=== PATIENT | male | born 1935 | race Caucasian/White ===

== ENCOUNTER 2018-04-18 22:01 | Inpatient (IN) | payer MEDICARE, BC ==
--- NOTE | 2018-04-18 23:17 | EDM.PDOC ---
ED HPI GENERAL MEDICAL PROBLEM - General Chief Complaint: Abdominal Pain Stated Complaint: "Having bloody stools" Time Seen by Provider: 04/18/18 22:15 Source of Information: Reports: Patient History Limitations: Reports: No Limitations, Other (hearing loss) - History of Present Illness INITIAL COMMENTS - FREE TEXT/NARRATIVE: Adiel is an 83 yo male who presents to the ED via private vehicle with complaints of abdominal pain, diarrhea and small amount of blood in his stools. He states he was feeling well this morning and had a late breakfast. He didn't have any symptoms until around 1:00pm this afternoon. He admits he started to get some cramps and had an episode of diarrhea. Denies any blood in his stool at this time. States he didn't feel to well later in the afternoon and had an episode of watery diarrhea with a small amount of blood in it. He has had one more episode (total of 3) this evening with a small amount of blood again. Continues to have abdominal cramps that come and go. He states he has no known history of diverticulitis. No prior abdominal surgeries. Onset: Today, Gradual Onset Date: 04/18/18 Onset Time: 13:00 Duration: Waxing/Waning Location: Reports: Abdomen Bilateral Lower Abdominal Pain Score (Numeric/FACES): 1 - Related Data Allergies Allergy/AdvReac Type Severity Reaction Status Date / Time No Known Allergies Allergy Verified 04/18/18 22:35 Home Meds: Home Meds Aspirin [Ecotrin] 81 mg PO DAILY 03/14/15 [History] Finasteride 5 mg PO DAILY 03/14/15 [History] Lisinopril/Hydrochlorothiazide [Lisinopril-Hctz 20-12.5 mg Tab] 0.5 tab PO DAILY 03/14/15 [History] Minocycline HCl 100 mg PO MOWEFR 03/14/15 [History] Terazosin HCl [Terazosin] 2 mg PO DAILY 03/14/15 [History] amLODIPine Besylate [Norvasc] 5 mg PO DAILY 03/14/15 [History] Past Medical History Cardiovascular History: Reports: Hypertension Genitourinary History: Reports: BPH Social & Family History - Tobacco Use Smoking Status *Q: Never Smoker Second Hand Smoke Exposure: No ED ROS GENERAL - Review of Systems Review Of Systems: See Below Constitutional: Denies: Fever, Chills, Decreased Appetite HEENT: Reports: No Symptoms Respiratory: Denies: Shortness of Breath, Wheezing, Cough Cardiovascular: Reports: Blood Pressure Problem. Denies: Chest Pain, Lightheadedness, Palpitations, Syncope GI/Abdominal: Reports: Abdominal Pain, Diarrhea, Hematochezia. Denies: Black Stool, Decreased Appetite, Flatus, Hematemesis, Nausea, Vomiting : Reports: No Symptoms Skin: Reports: No Symptoms Neurological: Reports: No Symptoms ED EXAM, GI/ABD - Physical Exam Exam: See Below Exam Limited By: No Limitations General Appearance: Alert, No Apparent Distress Ears: Normal External Exam, Hearing Loss Nose: Normal Inspection, Normal Mucosa, No Blood Throat/Mouth: Normal Inspection, Normal Lips, Normal Oropharynx, Normal Voice, No Airway Compromise Head: Atraumatic, Normocephalic Neck: Normal Inspection, Supple Respiratory/Chest: No Respiratory Distress, Lungs Clear, Normal Breath Sounds, No Accessory Muscle Use Cardiovascular: Normal Peripheral Pulses, Regular Rate, Rhythm, No Edema, No Murmur GI/Abdominal Exam: Soft, Tender (mild tenderness in bilateral lower quadrants). No: Guarding, Rigid, Abnormal Bowel Sounds, Mass, Hepatomegaly, Splenomegaly Rectal (Males) Exam: BPH, Heme + Stool. No: Black Stool, Fecal Impaction, Hemorrhoids, Mass, Prostate Nodule, Tenderness Extremities: Normal Inspection, No Pedal Edema Neurological: Alert, Oriented, Normal Cognition, No Motor/Sensory Deficits Psychiatric: Normal Affect, Normal Mood Skin Exam: Warm, Dry, Intact, Normal Color, No Rash Course - Vital Signs Last Recorded V/S: Last Vital Signs Temp 98.2 F 04/19/18 01:42 Pulse 89 04/19/18 01:42 Resp 20 04/19/18 01:42 BP 137/74 04/19/18 01:42 Pulse Ox 97 04/19/18 01:42 - Orders/Labs/Meds Orders: Active Orders 24 hr Category Date Time Status Abdomen Pelvis w Cont [CT] Stat Exams 04/18/18 23:10 Taken Labs: Laboratory Tests 04/18/18 04/18/18 04/18/18 Range/Units 22:47 22:47 23:10 WBC 10.3 H (5.0-10.0) 10^3/uL RBC 4.31 L (4.50-6.00) 10^6/uL Hgb 13.2 L (14.0-18.0) g/dL Hct 39.4 L (40.0-54.0) % MCV 91.4 (82.0-94.0) fL MCH 30.6 (27.0-32.0) pg MCHC 33.5 (33.0-38.0) g/dL RDW Coeff of Cezar 12.7 (11.0-15.0) % Plt Count 196 (150-400) 10^3/uL Neut % (Auto) 77.5 (35-85) % Lymph % (Auto) 14.5 (10-55) % [place] % (Auto) 5.7 (0-16) % Eos % (Auto) 2.0 (0-5) % Baso % (Auto) 0.3 (0-3) % Neut # (Auto) 7.98 H (1.80-7.00) 10^3/uL Lymph # (Auto) 1.49 (1.00-4.80) 10^3/uL [place] # (Auto) 0.59 (0.00-0.80) 10^3/uL Eos # (Auto) 0.21 (0.00-0.45) 10^3/uL Baso # (Auto) 0.03 10^3/uL Sodium 144 (136-145) mEq/L Potassium 4.0 (3.5-5.0) mEq/L Chloride 106 (98-106) mEq/L Carbon Dioxide 28 (21-32) mmol/L BUN 20 H (7-18) mg/dL Creatinine 1.1 (0.7-1.3) mg/dL Est Cr Clr Drug Dosing 51.78 mL/min Estimated GFR (MDRD) > 60 (>=60) mL/min Glucose 110 H (75-99) mg/dL Lactic Acid (0.4-2.0) mmol/L Calcium 8.5 (8.4-10.1) mg/dL Total Bilirubin 0.6 (0.0-1.0) mg/dL AST 19 (15-37) U/L ALT 26 (12-78) U/L Alkaline Phosphatase 61 (46-116) U/L C-Reactive Protein 0.6 (0.2-0.8) mg/dL Total Protein 6.7 (6.4-8.2) g/dL Albumin 3.7 (3.4-5.0) g/dL Amylase 72 (25-115) U/L Prostate Specific Ag 3.03 (0.13-4.0) ng/mL Urine Color Yellow (YELLOW) Urine Appearance Clear (CLEAR) Urine pH 5.5 (4.5-8.0) Ur Specific [place] 1.025 H (1.003-1.020) Urine Protein 30 H (NEGATIVE) mg/dL Urine Glucose (UA) Negative (NEGATIVE) mg/dL Urine Ketones Trace H (NEGATIVE) mg/dL Urine Occult Blood Negative (NEGATIVE) Urine Nitrite Negative (NEGATIVE) Urine Bilirubin Negative (NEGATIVE) Urine Urobilinogen 0.2 (0.2-1.0) EU/dL Ur Leukocyte Esterase Negative (NEGATIVE) Urine RBC Not seen (0-5) /HPF Urine WBC Not seen (0-5) /HPF Ur Squamous Epith Cells Occasional H (NOT SEEN) /HPF Urine Mucus Moderate H (NOT SEEN) /HPF 04/19/18 Range/Units 00:34 WBC (5.0-10.0) 10^3/uL RBC (4.50-6.00) 10^6/uL Hgb (14.0-18.0) g/dL Hct (40.0-54.0) % MCV (82.0-94.0) fL MCH (27.0-32.0) pg MCHC (33.0-38.0) g/dL RDW Coeff of Cezar (11.0-15.0) % Plt Count (150-400) 10^3/uL Neut % (Auto) (35-85) % Lymph % (Auto) (10-55) % [place] % (Auto) (0-16) % Eos % (Auto) (0-5) % Baso % (Auto) (0-3) % Neut # (Auto) (1.80-7.00) 10^3/uL Lymph # (Auto) (1.00-4.80) 10^3/uL [place] # (Auto) (0.00-0.80) 10^3/uL Eos # (Auto) (0.00-0.45) 10^3/uL Baso # (Auto) 10^3/uL Sodium (136-145) mEq/L Potassium (3.5-5.0) mEq/L Chloride (98-106) mEq/L Carbon Dioxide (21-32) mmol/L BUN (7-18) mg/dL Creatinine (0.7-1.3) mg/dL Est Cr Clr Drug Dosing mL/min Estimated GFR (MDRD) (>=60) mL/min Glucose (75-99) mg/dL Lactic Acid 0.9 (0.4-2.0) mmol/L Calcium (8.4-10.1) mg/dL Total Bilirubin (0.0-1.0) mg/dL AST (15-37) U/L ALT (12-78) U/L Alkaline Phosphatase (46-116) U/L C-Reactive Protein (0.2-0.8) mg/dL Total Protein (6.4-8.2) g/dL Albumin (3.4-5.0) g/dL Amylase (25-115) U/L Prostate Specific Ag (0.13-4.0) ng/mL Urine Color (YELLOW) Urine Appearance (CLEAR) Urine pH (4.5-8.0) Ur Specific [place] (1.003-1.020) Urine Protein (NEGATIVE) mg/dL Urine Glucose (UA) (NEGATIVE) mg/dL Urine Ketones (NEGATIVE) mg/dL Urine Occult Blood (NEGATIVE) Urine Nitrite (NEGATIVE) Urine Bilirubin (NEGATIVE) Urine Urobilinogen (0.2-1.0) EU/dL Ur Leukocyte Esterase (NEGATIVE) Urine RBC (0-5) /HPF Urine WBC (0-5) /HPF Ur Squamous Epith Cells (NOT SEEN) /HPF Urine Mucus (NOT SEEN) /HPF Meds: Medications Discontinued Medications Generic Name Dose Route Start Last Admin Trade Name Freq PRN Reason Stop Dose Admin Iopamidol 100 ml 04/18/18 23:54 04/18/18 23:55 Isovue-300 (61%) IVPUSH 04/18/18 23:55 130 ml ONETIME ONE Administration Departure - Departure Time of Disposition: 01:11 Disposition: Admitted As Inpatient 67 Clinical Impression: Colitis - Discharge Information - Problem List & Annotations (1) Colitis SNOMED Code(s): 72257025 Code(s): K52.9 - NONINFECTIVE GASTROENTERITIS AND COLITIS, UNSPECIFIED Status: Acute Current Visit: Yes - My Orders Last 24 Hours: My Active Orders 04/18/18 23:10 Abdomen Pelvis w Cont [CT] Stat - Assessment/Plan Admission H&P: Please use this note as an admission H&P Last 24 Hours: My Active Orders 04/18/18 23:10 Abdomen Pelvis w Cont [CT] Stat Plan: Laboratory work showed a mildly elevated WBC, otherwise unremarkable. Lactic Acid was normal. CMP unremarkable. CT of the abdomen/pelvis did show colitis extending from splenic flexure to the sigmoid region. Radiologist stated differential could be ischemic vs infectious vs inflammatory bowel. I consulted with Dr. Goodman at [facility] in regards to Adiel's condition. Adiel's vital signs have been stable, afebrile. Will admit to acute care and initiate IV fluids and antibiotics. Stool cultures ordered. Will repeat labs with lactic acid in am. I will consult with Dr. Thrasher in the morning. Dr. Goodman felt treatment plan was appropriate. Adiel was transferred to floor in satisfactory condition.
[2018-04-18 23:34] LABS: CHLORIDE,CL 106 mEq/L (98-106); SODIUM,NA 144 mEq/L (136-145)
[2018-04-18] MEDS ORDERED: Iopamidol 612 MG/ML 100 ML Bottle IVPUSH ONE (23:54)
[2018-04-19] MEDS ORDERED: Ondansetron 4 MG/2 ML SDV IV PRN (01:50)
[2018-04-19] MEDS ORDERED: fentaNYL 100 MCG/2 ML SDV IVPUSH PRN (01:50)
[2018-04-19] MEDS ORDERED: Acetaminophen 325 MG Tab PO PRN (01:50)
[2018-04-19] MEDS: Sodium Chloride 0.9% 1,000 ML IV SCH ×2 (02:41→17:33)
[2018-04-19] MEDS ORDERED: metroNIDAZOLE/Normal Saline 500 MG in Premix Bag 1 BAG IV ONE (02:45)
[2018-04-19] MEDS: Levofloxacin/Dextrose 5%-Water 500 MG in Premix Bag 1 BAG IV SCH (03:42)
[2018-04-19 07:31] LABS: CHLORIDE,CL 106 mEq/L (98-106); SODIUM,NA 144 mEq/L (136-145)
[2018-04-19] MEDS: Terazosin 1 MG Cap PO SCH (08:49)
[2018-04-19] MEDS: Finasteride 5 MG Tab PO SCH (08:50)
[2018-04-19] MEDS: Lisinopril 10 MG Tab PO SCH (08:50)
[2018-04-19] MEDS: amLODIPine 2.5 MG Tab PO SCH (08:50)
[2018-04-19] MEDS: Hydrochlorothiazide 25 MG Tab PO SCH (08:51)
--- NOTE | 2018-04-19 09:03 | PN ---
DATE: 04/19/2018 S: Adiel is an 83-year-old gentleman who presented to the emergency room yesterday with concerns of diarrhea that had started yesterday afternoon. Complete workup was done in the emergency room. A CT scan of the abdomen and pelvis did show extensive colitis just distal to the splenic flexure extending down to the sigmoid colon. LABORATORY WORK: On admission did show a hemoglobin of 13.2 which is stable for him. Lactic acid was within normal limits. CRP was 0.6. We elected to admit him to the hospital for IV antibiotics and fluids. This morning, he states that he does feel a little bit better. He really has not had any diarrhea throughout the night. He does state that he has been able to void without any complications. He has been starting to pass some flatus. He is requesting to eat some food this morning. He remained afebrile throughout the night. Vital signs were stable. O: VITAL SIGNS: Blood pressure is 114/50, current pulse is 74, O2 is 99%, respiratory rate of 19, and temp is afebrile at 97.8. GENERAL: Pleasant cooperative male. He does not appear to be in any distress, whatsoever. He appears to be lying comfortably on the hospital bed. LUNGS: Clear to auscultation. CARDIAC: Regular. ABDOMEN: Soft. No diffuse tenderness throughout the entire abdomen. Bowel sounds are present. Normoactive. EXTREMITIES: No pedal edema is noted. ASSESSMENT: COLITIS, UNKNOWN ETIOLOGY. P: We will continue with IV fluids and IV antibiotics. I discussed with Adiel. We will repeat laboratory work again in the morning. The labs completed today did show lactic acid to remain within normal limits. CRP did elevate up to 1.2, was 0.6 yesterday. White blood count is currently 7700. Hemoglobin has been stable as well, at 12.5. Again, he is getting IV fluids. MADHAV/RAJ /[id number]
[2018-04-19] MEDS: metroNIDAZOLE/Normal Saline 500 MG in Premix Bag 1 BAG IV SCH ×2 (09:57→19:26)
[2018-04-19] MEDS ORDERED: Pantoprazole 40 MG Tab.CR PO SCH (18:45)
[2018-04-20] MEDS: metroNIDAZOLE/Normal Saline 500 MG in Premix Bag 1 BAG IV SCH ×3 (02:09→17:30)
[2018-04-20] MEDS: Levofloxacin/Dextrose 5%-Water 500 MG in Premix Bag 1 BAG IV SCH (03:10)
[2018-04-20] MEDS: Terazosin 1 MG Cap PO SCH (07:38)
[2018-04-20] MEDS: Lisinopril 10 MG Tab PO SCH (07:38)
[2018-04-20] MEDS: Hydrochlorothiazide 25 MG Tab PO SCH (07:39)
[2018-04-20] MEDS: amLODIPine 2.5 MG Tab PO SCH (07:40)
[2018-04-20] MEDS: Finasteride 5 MG Tab PO SCH (07:42)
[2018-04-20 07:43] LABS: CHLORIDE,CL 109 mEq/L (98-106); SODIUM,NA 143 mEq/L (136-145)
[2018-04-20] MEDS: Sodium Chloride 0.9% 1,000 ML IV SCH ×2 (09:30→23:58)
--- NOTE | 2018-04-20 12:22 | PCM.PN ---
- General Info Date of Service: 04/20/18 Admission Dx/Problem (Free Text): Colitis Subjective Update: Adiel is an 83 year old male who was admitted to the hospital 04/18/2018 for colitis. This morning he is resting comfortably in his chair at the time of rounds. He reports he is feeling better this morning. Does report his diarrhea has decreased and his abdominal pain has much improved. He has not had any nausea or vomiting. Functional Status: Reports: Pain Controlled, Tolerating Diet, Ambulating, Urinating. Denies: New Symptoms - Review of Systems General: Denies: Fever, Weakness, Fatigue, Chills Pulmonary: Reports: No Symptoms Cardiovascular: Reports: No Symptoms Gastrointestinal: Reports: Abdominal Pain (LLQ, improving), Diarrhea, Hematochezia. Denies: Decreased Appetite, Nausea, Vomiting Genitourinary: Denies: Dysuria, Frequency, Urgency Musculoskeletal: Reports: No Symptoms Skin: Reports: No Symptoms Neurological: Reports: No Symptoms Psychiatric: Reports: No Symptoms - Patient Data Vitals - Most Recent: Last Vital Signs Temp 97.3 F 04/20/18 11:49 Pulse 51 L 04/20/18 11:49 Resp 16 04/20/18 11:49 BP 115/51 L 04/20/18 11:49 Pulse Ox 98 04/20/18 11:49 Weight - Most Recent: 160 lb 3.2 oz I&O - Last 24 Hours: Intake & Output 04/19/18 04/20/18 04/20/18 22:59 06:59 14:59 Intake Total 1100 1100 Balance 1100 1100 Lab Results Last 24 Hours: Laboratory Results - last 24 hr 04/20/18 04/20/18 04/20/18 Range/Units 06:45 06:45 06:45 WBC 7.2 (5.0-10.0) 10^3/uL RBC 3.87 L (4.50-6.00) 10^6/uL Hgb 11.9 L (14.0-18.0) g/dL Hct 36.2 L (40.0-54.0) % MCV 93.5 (82.0-94.0) fL MCH 30.7 (27.0-32.0) pg MCHC 32.9 L (33.0-38.0) g/dL RDW Coeff of Cezar 12.8 (11.0-15.0) % Plt Count 176 (150-400) 10^3/uL Neut % (Auto) 70.3 (35-85) % Lymph % (Auto) 18.1 (10-55) % [place] % (Auto) 6.9 (0-16) % Eos % (Auto) 4.3 (0-5) % Baso % (Auto) 0.4 (0-3) % Neut # (Auto) 5.07 (1.80-7.00) 10^3/uL Lymph # (Auto) 1.31 (1.00-4.80) 10^3/uL [place] # (Auto) 0.50 (0.00-0.80) 10^3/uL Eos # (Auto) 0.31 (0.00-0.45) 10^3/uL Baso # (Auto) 0.03 10^3/uL Sodium 143 (136-145) mEq/L Potassium 4.2 (3.5-5.0) mEq/L Chloride 109 H (98-106) mEq/L Carbon Dioxide 28 (21-32) mmol/L BUN 11 (7-18) mg/dL Creatinine 0.9 (0.7-1.3) mg/dL Est Cr Clr Drug Dosing 65.04 mL/min Estimated GFR (MDRD) > 60 (>=60) mL/min Glucose 90 (75-99) mg/dL Lactic Acid 0.6 (0.4-2.0) mmol/L Calcium 8.1 L (8.4-10.1) mg/dL C-Reactive Protein 2.6 H (0.2-0.8) mg/dL Sid Results Last 24 Hours: Microbiology 04/19/18 01:50 Shiga Toxin I & II - Final Stool / Feces 04/19/18 01:50 C. difficile DNA Amplification - Final Stool / Feces NEGATIVE CDIFF BY DNA 04/19/18 01:50 Stool for WBCs - Final Stool / Feces Med Orders - Current: Current Medications Acetaminophen (Tylenol) 650 mg PO Q4H PRN PRN Reason: Pain (Mild 1-3)/fever Amlodipine Besylate (Norvasc) 5 mg PO DAILY [facility] Last Admin: 04/20/18 07:40 Dose: 5 mg Fentanyl (Sublimaze) 25 mcg IVPUSH Q6H PRN PRN Reason: Pain Finasteride (Proscar) 5 mg PO DAILY [facility] [place] Last Admin: 04/20/18 07:42 Dose: 5 mg Hydrochlorothiazide (Hydrochlorothiazide) 6.25 mg PO DAILY [facility] [place] Last Admin: 04/20/18 07:39 Dose: 6.25 mg Levofloxacin/Dextrose 500 mg/ (Premix) 100 mls @ 100 mls/hr IV Q24H [facility] [place] Last Admin: 04/20/18 03:10 Dose: 100 mls/hr Metronidazole 500 mg/ Premix 100 mls @ 100 mls/hr IV Q8H [facility] [place] Last Admin: 04/20/18 09:34 Dose: 100 mls/hr Sodium Chloride (Normal Saline) 1,000 mls @ 75 mls/hr IV ASDIRECTED [facility] [place] Last Admin: 04/20/18 09:30 Dose: 75 mls/hr Lisinopril (Prinivil) 10 mg PO DAILY [facility] [place] Last Admin: 04/20/18 07:38 Dose: 10 mg Ondansetron HCl (Zofran) 4 mg IV Q4H PRN PRN Reason: Nausea/Vomiting Terazosin HCl (Hytrin) 2 mg PO DAILY [facility] Last Admin: 04/20/18 07:38 Dose: 2 mg Discontinued Medications Metronidazole 500 mg/ Premix 100 mls @ 100 mls/hr IV ONETIME ONE Stop: 04/19/18 03:44 Last Admin: 04/19/18 02:42 Dose: 100 mls/hr Iopamidol (Isovue-300 (61%)) 100 ml IVPUSH ONETIME ONE Stop: 04/18/18 23:55 Last Admin: 04/18/18 23:55 Dose: 130 ml - Exam General: Alert, Oriented, No Acute Distress Neck: Supple Lungs: Clear to Auscultation, Normal Respiratory Effort Cardiovascular: Regular Rate, Regular Rhythm GI/Abdominal Exam: Normal Bowel Sounds, Soft, No Organomegaly, No Distention, No Abnormal Bruit, No Mass, Pelvis Stable, Tender (LLQ) Neurological: No New Focal Deficit Psy/Mental Status: Alert, Normal Affect, Normal Mood - Problem List & Annotations (1) Colitis SNOMED Code(s): 00729063 Code(s): K52.9 - NONINFECTIVE GASTROENTERITIS AND COLITIS, UNSPECIFIED Status: Acute Current Visit: Yes - Problem List Review Problem List Initiated/Reviewed/Updated: Yes - My Orders Last 24 Hours: My Active Orders 04/20/18 Lunch Regular Diet [DIET] - Plan Plan:: Patient's symptoms improving. Labs all stable. Would like to keep patient an additional day for IV antibiotics. Patient will need to be scheduled for colonoscopy next Thursday per Dr. Thrasher. Will advance diet today and see how patient tolerates. If patient able to tolerate diet with no worsening of symptoms, anticipate discharge home tomorrow. Dr. Thrasher present on rounds and agrees with plan.
[2018-04-21] MEDS: metroNIDAZOLE/Normal Saline 500 MG in Premix Bag 1 BAG IV SCH ×2 (01:34→09:16)
[2018-04-21] MEDS: Levofloxacin/Dextrose 5%-Water 500 MG in Premix Bag 1 BAG IV SCH (02:34)
[2018-04-21] MEDS: Terazosin 1 MG Cap PO SCH (09:10)
[2018-04-21] MEDS: Lisinopril 10 MG Tab PO SCH (09:10)
[2018-04-21] MEDS: Finasteride 5 MG Tab PO SCH (09:11)
[2018-04-21] MEDS: Hydrochlorothiazide 25 MG Tab PO SCH (09:11)
[2018-04-21] MEDS: amLODIPine 2.5 MG Tab PO SCH (09:12)
[2018-04-21 09:14] VITALS: BP 147/72
--- NOTE | 2018-04-22 09:34 | DISCH ---
HISTORY: Adiel is an 83-year-old gentleman who presented to the ER on 04/18/2018 with complaints of abdominal pain, diarrhea, and small amount of blood in his stools. His symptoms initially have started earlier in that afternoon. Throughout the day, his symptoms gradually worsened, started having more episodes of diarrhea and did notice some bloody stools towards the end. CT scan of the abdomen and pelvis prior to the admission did show diffuse colitis extending from just distal to the splenic flexure down to the sigmoid colon. HOSPITAL COURSE: Adiel has been progressing fairly well with no further bloody stools since admission. He was put on Levaquin and Flagyl intravenously. [place] [address] now down to 7200 today. CRP is 2.6. Otherwise, his laboratory work has been fairly unremarkable. Adiel is feeling a lot better. He states he did have a bowel movement this morning with no further blood again. He is asking whether he can go home today. PHYSICAL EXAMINATION: VITAL SIGNS: Have been stable. Blood pressure is 140/64, oxygen saturations 97% on room air with respiratory rate of 16, he has been afebrile, and temperature is 98.3. No fevers have been noted since admission. Stool cultures did show negative Clostridium difficile. Shiga toxin was negative. DISCHARGE MEDICATIONS: The patient will be discharged home on: 1. Ciprofloxacin 500 mg twice a day for 10 days. 2. Flagyl 500 mg three times a day for 10 days. DISCHARGE INSTRUCTIONS: The patient is to go home and rest. He is to closely monitor his stools. If he has any further bloody stools, he is to return for reevaluation. We will look and get him setup with Leslie Smith, his primary provider next week for preop examination in regard to have him colonoscopy by Dr. Prakash Thrasher next week Thursday. MADHAV/RAJ /[id number]
== END 2018-04-21 10:45 | disposition home or self-care (01) | DRG 392 ==
LOC: CC.ED 22:01 → CC.MS 04-19 01:15 → UNDOADMIN 04-19 01:15 → CC.MS 04-19 01:34
PROVIDERS: ADMIT Physician Assistant Medical; ATTEND Family Medicine
DX: K52.9 Noninfective gastroenteritis and colitis, unspecified (principal); I10 Essential (primary) hypertension; N40.0 Benign prostatic hyperplasia without lower urinary tract symptoms; Z79.82 Long term (current) use of aspirin; Z79.899 Other long term (current) drug therapy
CPT/HCPCS: 36415 ×2; 74177; 80053; 81001; 82150; 83605; 84153; 85025; 86140; 99285; Q9967 ×2; 80048; 83735; 87045; 87046; 87493; 87899; 89055; A9270-GY; J1956; J3490; J7030

== ENCOUNTER → 2018-04-30 | Day surgery (SDC) | payer MEDICARE, BC ==
[~2018-04-30] MED LIST: Lactated Ringers 1,000 ML IV SCH; Propofol 200 MG/20 ML SDV IV ONE
[2018-04-30 10:16] VITALS: BP 120/56
--- NOTE | 2018-05-03 10:28 | OR ---
DATE OF OPERATION: 04/30/2018 PREOPERATIVE DIAGNOSIS: COLITIS. POSTOPERATIVE DIAGNOSIS: COLITIS. SURGEON: Prakash Thrasher MD PROCEDURE: FULL-LENGTH COLONOSCOPY WITH BIOPSIES X5. ANESTHESIA: METAL ENGRAVER. COMPLICATIONS: None. SPECIMEN: Left-sided biopsies from splenic flexure to proximal sigmoid colon. FINDINGS: 1. Full-length colonoscopy. 2. Minimal sigmoid diverticulosis. 3. Resolving colitis, mid descending to proximal sigmoid colon. RECOMMENDATIONS: Follow up pending path report. INDICATIONS: Mr. Franklin is an 83-year-old who presented to our hospital 2 weeks ago with bloody diarrhea and abdominal pain. CT scan showed left-sided colitis from the splenic flexure to the proximal sigmoid. It resolved nicely and we elected to proceed with endoscopy for pathologic diagnosis. DESCRIPTION OF PROCEDURE: The patient was prepped and draped, placed in the left lateral decubitus position. A lubricated Olympus colonoscope was inserted and easily advanced to the cecum. Direct visualization of the ileocecal valve and appendiceal orifice was accomplished. The bowel prep was fine. Upon withdrawal of the scope, the ascending and transverse colon were completely unremarkable. Most of the descending colon could not observe any signs of prior colitis. We did do 3 random biopsies from the splenic flexure to the proximal sigmoid. In the proximal sigmoid, the patient had evidence of resolving colitis as evidenced by some healing ulcerative changes. Two sales representative church furniture biopsies were taken. The mid and distal sigmoid were benign as was the rectosigmoid junction. Rectal vault was unremarkable. Retroflexion of scope in the rectum showed no anal lesions. Air was suctioned, scope removed without complication. CURT/RAJ /[id number]
== END ==
LOC: CC.SDS 08:10
PROVIDERS: ATTEND Family Medicine
DX: K52.9 Noninfective gastroenteritis and colitis, unspecified (principal); K57.30 Diverticulosis of large intestine without perforation or abscess without bleeding; I10 Essential (primary) hypertension; N40.0 Benign prostatic hyperplasia without lower urinary tract symptoms; Z87.891 Personal history of nicotine dependence; Z79.82 Long term (current) use of aspirin; Z79.899 Other long term (current) drug therapy
CPT/HCPCS: 45380; J2704; J7120; 00811; 88305